=== PATIENT | female | born 1965 | race Hispanic/Latino ===

== ENCOUNTER 2023-01-27 13:44 | Emergency (ER) | payer OTHER ==
[2023-01-27] MEDS ORDERED: Ketorolac Tromethamine 30 MG/ML VIAL ONE (14:28)
== END 2023-01-27 14:50 | disposition home or self-care (01) ==
LOC: CSHERS 13:44
DX: M79.674 Pain in right toe(s) (principal); I10 Essential (primary) hypertension
CPT/HCPCS: 96372; 99283; J1885

== ENCOUNTER 2023-07-27 14:36 | Emergency (ER) | payer OTHER | END 2023-07-27 15:59 | disposition home or self-care (01) | LOC: CSHERS 14:36 | DX: G51.0 Bell's palsy (principal); I10 Essential (primary) hypertension | CPT/HCPCS: 99284 ==

== ENCOUNTER 2023-08-05 12:57 | Emergency (ER) | payer OTHER ==
[2023-08-05] MEDS ORDERED: HYDROcodone/Acetaminophen 5/325 mg Tablet ONE (14:49)
[2023-08-05] MEDS ORDERED: Proparacaine 0.5% Opth 15 ML BOT ONE ×2 (15:54→16:07)
[2023-08-05] MEDS ORDERED: Fluorescein Opthalmic Strip ONE ×2 (15:54→16:07)
== END 2023-08-05 16:40 | disposition home or self-care (01) ==
LOC: CSHERS 12:57
DX: S05.02XA Injury of conjunctiva and corneal abrasion without foreign body, left eye, initial encounter (principal); Z86.73 Personal history of transient ischemic attack (TIA), and cerebral infarction without residual deficits; I10 Essential (primary) hypertension; X58.XXXA Exposure to other specified factors, initial encounter
CPT/HCPCS: 70450